=== PATIENT | male | born 1960 | race Caucasian/White ===

== ENCOUNTER → 2019-04-26 | Outpatient (CLI) | payer OTHER ==
[~2019-04-26] MED LIST: ACET500T68 PO; ASCO500C9 PO; CHOL10003 PO; DOCU-109 PO; GLUC-9 PO; IBUP-1060 PO; LEVO150T5 PO; NORT25CA PO; ROSUVASTATIN CA10 M1 PO; TRAM50TA PO; VALIUM10 MG PO; ZALE10CA PO
[2019-04-26 10:31] LABS: BASO # 0.1 x10^3/uL (0.0-0.2); BASO % 1 % (0-3); EOS % 1 % (0-3); HEMATOCRIT 42.7 % (39.0-53.0); HEMOGLOBIN 14.9 g/dL (13.0-17.5); LYMPH # 1.2 x10^3/uL (1.0-4.8); LYMPH % 18 % (24-48); MEAN CORPUSCULAR HEMOGLOBIN 33 pg (25-35); MEAN CORPUSCULAR HGB CONC 35 g/dL (31-37); MEAN CORPUSCULAR VOLUME 95 fL (79-100); MONO # 0.6 x10^3/uL (0.0-1.1); MONO % 10 % (0-9); NEUT # 4.6 x10^3uL (1.8-7.7); NEUT % 71 % (31-73); PLATELET COUNT 265 x10^3/uL (140-400); RED BLOOD COUNT 4.49 x10^6/uL (4.30-5.70); WHITE BLOOD COUNT 6.5 x10^3/uL (4.0-11.0)
[2019-04-26 10:57] LABS: ALBUMIN 3.6 g/dL (3.4-5.0); ALBUMIN/GLOBULIN RATIO 1.2 (1.0-1.7); CALCIUM 8.6 mg/dL (8.5-10.1); CREATININE 0.9 mg/dL (0.7-1.3); POTASSIUM 4.2 mmol/L (3.5-5.1); TOTAL BILIRUBIN 0.3 mg/dL (0.2-1.0); TOTAL PROTEIN 6.6 g/dL (6.4-8.2)
== END | disposition home or self-care (01) ==
LOC: SURGPAT 09:42
PROVIDERS: ATTEND Neurological Surgery
DX: Z01.818 Encounter for other preprocedural examination (principal); M50.10 Cervical disc disorder with radiculopathy, unspecified cervical region; M48.02 Spinal stenosis, cervical region
CPT/HCPCS: 36415; 80053; 85025; 87641

== ENCOUNTER 2019-05-03 07:40 | Observation (INO) | payer OTHER ==
[2019-05-03] VITALS (9 sets, daily range): BP systolic 90–128; BP diastolic 60–84
[~2019-05-03] VITALS: Ht 167.6 cm; Wt 85.3 kg
[~2019-05-03 07:40] MED LIST changes: +BUPIVAC MPF-EPI 0.5%-1:200000 30 ML VIAL. ONE; -DOCU-109 PO; +GELATIN SPONGE SIZE 12-7MM SPONGE. ONE; +THROMBIN TOPICAL 20,000 UNIT SPRAY.SYRN KIT TP ONE; -TRAM50TA PO; +ceFAZolin 2GM PREMIX 2 GM/50 ML BAG IV ONE
[2019-05-03] MEDS: IV RINGERS,LACTATED 1000ML 1,000 ML IV SCH ×3 (08:23→22:47)
[2019-05-03] MEDS ORDERED: ePHEDrine PF IN SALINE 50 MG/10 ML SYRINGE. IV ONE ×2 (08:32→10:11)
[2019-05-03] MEDS ORDERED: DEXAMETHASONE SOD PHOS 20 MG/5 ML VIAL. ONE (08:32)
[2019-05-03] MEDS ORDERED: PROPOFOL 20 ML IV ONE (08:32)
[2019-05-03] MEDS ORDERED: ONDANSETRON PF 4 MG/2 ML VIAL. ONE (08:32)
[2019-05-03] MEDS ORDERED: LIDOCAINE 2% PF 5 ML VIAL. ONE (08:32)
[2019-05-03] MEDS ORDERED: PHENYLEPHRINE in 0.9% NACL PF 1 MG/10 ML SYRINGE. IV ONE (08:33)
[2019-05-03] MEDS ORDERED: SUCCINYLCHOLINE 200 MG/10 ML VIAL. ONE (08:34)
[2019-05-03] MEDS ORDERED: ROCURONIUM 50 MG/5 ML VIAL. ONE (08:34)
[2019-05-03] MEDS ORDERED: PROPOFOL 50 ML IV ONE ×2 (08:35→10:40)
[2019-05-03] MEDS ORDERED: fentaNYL PF VIAL 100 MCG/2 ML VIAL ONE ×2 (08:35→13:27)
[2019-05-03] MEDS ORDERED: REMIFENTANIL 2 MG VIAL. IV ONE (08:36)
[2019-05-03] MEDS ORDERED: VANCOMYCIN 1GM IVPB FOR OMNI 250 ML IV STA (08:38)
[2019-05-03] MEDS ORDERED: MIDAZOLAM HCL/PF 2 MG/2 ML VIAL. ONE (08:52)
[2019-05-03] MEDS ORDERED: BACITRACIN 50,000 UNIT in IV NORMAL SALINE 1000ML BAG 1,000 ML IRR ONE (09:00)
--- NOTE | 2019-05-03 09:01 | PREOP HP ---
DATE OF SERVICE: 05/03/2019. HISTORY OF PRESENT ILLNESS: The patient is a pleasant 59-year-old, who has neck pain and right greater than left arm pain. He notes his neck pain can radiate into both of his arms and his upper back. He has headaches associated with this. This problem started about a month ago. The last month has been much more severe. He currently rates his pain as a constant 8/10. Looking up or down or sitting for too long increases his pain. Turning his head is painful for him. He uses ice, heat, and stretches. He does physical therapy exercises at home. He spoke with a pain clinic for epidural steroid injections. After reviewing his films, the pain clinic physician refused to give him an epidural saying he needs to be seen by a surgeon. He did have cervical surgery 5 years ago and did well from that. PAST MEDICAL HISTORY: Cancer of the thyroid, headaches and migraines, thyroid disease. PAST SURGICAL HISTORY: Lumbar surgery in 2000, hand surgery in 2003, thyroid cancer in 2012, cervical surgery in 2014. FAMILY HISTORY: Cancer. SOCIAL HISTORY: Retired. . Stretches and walks for exercises. Denies tobacco use. Drinks alcohol 1-2 times daily. Drinks coffee daily. ALLERGIES: To CODEINE. CURRENT MEDICATIONS: Sonata, Synthroid,Skelaxin, nortriptyline, acetaminophen and ibuprofen. REVIEW OF SYSTEMS: A 12-point review of systems was obtained and is noncontributory except for that mentioned above. PHYSICAL EXAMINATION: NEUROSURGERY EXAMINATION: GENERAL APPEARANCE: Alert, pleasant, no acute distress. HEAD: Normocephalic and atraumatic. NECK AND THYROID: Mild to moderate tenderness with palpation of posterior cervical region. Well-healed incision. SKIN: Warm and dry. MUSCULOSKELETAL: Cervical paraspinal muscle bulk is normal, cervical range of motion is restricted, normal range of motion of the upper extremities bilaterally. EXTREMITIES: No clubbing, cyanosis, or edema. NEUROLOGIC: Alert and oriented x 3, normal recent and remote memory. Strength is 5/5 in bilateral upper and lower extremities, sensory was intact to light touch in upper and lower extremities except for decrease involving both of his hands. Reflexes were present and symmetric in the upper and lower extremities bilaterally, ambulates with a cane. IMAGING: I reviewed a cervical MRI scan from 03/23/2019. On that study, there was evidence of a previous ACDF extending from C5 through C7. At C4-C5, there was a moderately large disc protrusion posteriorly with a left paracentral disc protrusion. This resulted in a severe neural foraminal narrowing. There was also moderately severe cervical spinal stenosis, which has become significantly worse since his last study. ASSESSMENTS/PLAN: He has cervical spinal stenosis, which is significant. He has failed to improve with conservative measures. I recommended further cervical surgery at C4-C5. I explained that I would have to remove at least part of the anterior cervical plate, position below and perform a generous discectomy at C4-C5 and place a new plate at that level. I discussed with him the risk of the anterior neck surgery including stroke, paralysis, and injury to the esophagus and trachea. I outlined the technique of the operation and expected postoperative course. We went through the rationale for the surgery and the options. He would like to go ahead. We will make the arrangements. MEIR CLOUD MD DR: DONALD/latisha JOB#: [id number] / [id number] DEVIKA
[2019-05-03] MEDS ORDERED: PHENYLEPHRINE 10 MG/ML VIAL. ONE (10:44)
[2019-05-03] MEDS ORDERED: DESFLURANE > 120 MINUTES IH ONE (12:06)
[2019-05-03] MEDS ORDERED: GLYCOPYRROLATE 1 MG/5 ML VIAL. ONE (12:20)
[2019-05-03] MEDS ORDERED: diphenhydrAMINE HCL 25 MG CAPSULE PO PRN (12:30)
[2019-05-03] MEDS ORDERED: ACETAMINOPHEN 325 MG TABLET. PO PRN (12:30)
[2019-05-03] MEDS ORDERED: MAG HYDROX/ALUMINUM HYD/SIMETH 30 ML ORAL.SUSP PO PRN (12:30)
[2019-05-03] MEDS ORDERED: diazePAM 5 MG TABLET PO PRN (12:30)
[2019-05-03] MEDS ORDERED: CALCIUM CARBONATE 500 MG TAB.CHEW PO PRN (12:30)
[2019-05-03] MEDS ORDERED: diphenhydrAMINE 50 MG/ML VIAL IV PRN (12:30)
[2019-05-03] MEDS ORDERED: ONDANSETRON PF 4 MG/2 ML VIAL. IV PRN ×2 (12:30→13:30)
[2019-05-03] MEDS ORDERED: 0.9 % SODIUM CHLORIDE 10 ML DISP.SYRIN. IV PRN (12:30)
[2019-05-03] MEDS ORDERED: ACETAMINOPHEN 500 MG TABLET PO PRN (12:30)
[2019-05-03] MEDS ORDERED: MAGNESIUM HYDROXIDE 2,400 MG/30 ML ORAL.SUSP. PO PRN (12:30)
[2019-05-03] MEDS ORDERED: PROCHLORPERAZINE 10 MG/2 ML VIAL. ONE (12:44)
[2019-05-03] MEDS ORDERED: ZOLPIDEM 5 MG TABLET. PO PRN (12:45)
--- NOTE | 2019-05-03 12:56 | OP ---
DATE OF SURGERY: 05/03/2019 PREOPERATIVE DIAGNOSES: Herniated cervical disc, C4-C5 with cervical stenosis and cervical radiculopathy. POSTOPERATIVE DIAGNOSES: Herniated cervical disc, C4-C5 with cervical stenosis and cervical radiculopathy. OPERATION PERFORMED: Anterior cervical microdiscectomy C4-C5; anterior cervical interbody fusion C4-C5 with allograft and autograft bone and interbody fusion cage, anterior cervical plate, C4-C5. The operation included removal of hardware C5, fluoroscopy, microscopic dissection, multimodality monitoring including EMG, SSEP, motor evoked potentials, NIMS monitoring. SURGEON: Eder Cloud M.D. ONLINE MERCHANDISING MANAGER: EVAN Arteaga assisted with the surgery. She assisted with the placement of hardware and closure. OPERATIVE INDICATIONS: The patient is a pleasant 59-year-old man who developed intractable neck and bilateral arm pain, right greater than left. On imaging studies, there was a disc herniation at C4-C5 with neural foraminal narrowing and moderately severe cervical stenosis and I have recommended an anterior cervical microdiscectomy and fusion. I spoke with him about the surgery, the risks, technique and expected postoperative course and he wished to go ahead. In the past, he has undergone a surgery with anterior fusion from C5 through C7. DESCRIPTION OF PROCEDURE: Following general endotracheal anesthesia, the patient was positioned supine with the neck and head in the neutral position. The anterior cervical region was prepped and draped in standard fashion. ANN-MARIE hose and AV impulse boots were applied for DVT prophylaxis. The microscope was draped. Fluoroscopy was draped and brought in the field. Vancomycin 1 gram and Ancef 2 grams was given prior to surgery at the appropriate times. Using fluoroscopic guidance, an incision was made from the midline around to the right side in a skin crease in the anterior cervical region directly over the C4-C5 interspace. I dissected down skin and subcutaneous tissue. I dissected down the medial aspect of sternocleidomastoid and carotid artery sheath down the anterior cervical vertebral body. I reflected the trachea and esophagus contralaterally and I worked down through scarring and exposed the previous plate. I did remove one of the screws, which allowed me then to place a distraction pin in the place, a distraction pin into C4, confirmed my positions fluoroscopically. I distracted the disc space after I placed the anterior cervical retractors and had excellent hemostasis. The microscope was brought in during this time. I incised the anterior annulus with #11 blade. I performed discectomy with pituitary rongeurs. I scraped away the cartilaginous endplate and gradually worked down posteriorly, there was considerable spurring posteriorly and I trimmed this away and then there was posterior disc, which I peeled back and removed and I then worked laterally bilaterally and assured myself that the neural foramina were open. I could visualize the dura. I was able to pass a blunt hook out into the foramen without any resistance and I felt that I had an excellent decompression. I did scrape cartilaginous endplate. Then I measured and placed a 6 mm interbody fusion cage, which was packed with allograft and autograft bone. The autograft bone, I obtained from shaving away the bone spurs and keeping this bone. Hemostasis prior to placement of the cage was perfect. I placed an anterior 12 mm plate and four 14 mm screws, which were locked. One screw I redirected slightly superiorly and the images were obtained and I felt that the positioning was absolutely perfect. I irrigated copiously with antibiotic solution. I removed the retractor, again Valsalva'd and assured myself of perfect hemostasis, which there was. I closed the wound with absorbable sutures, a single layer for the platysma and then closed the skin with a 4-0 subcuticular stitch. The operation went very well. I was quite pleased with the surgery. EDER CLOUD MD DR: DONALD/latisha JOB#: [id number] / [id number] DEVIKA
[2019-05-03] MEDS ORDERED: IV RINGERS,LACTATED 1000ML 1,000 ML IV SCH (13:17)
[2019-05-03] MEDS: fentaNYL PF VIAL 100 MCG/2 ML VIAL IV PRN ×4 (13:29→21:13)
[2019-05-03] MEDS ORDERED: MORPHINE SULFATE 2 MG/ML VIAL. IV PRN (13:30)
[2019-05-03] MEDS ORDERED: fentaNYL PF VIAL 100 MCG/2 ML VIAL IV PRN ×2 (13:30)
[2019-05-03] MEDS ORDERED: HYDROmorphone 2 MG/ML VIAL IV PRN (13:30)
[2019-05-03] MEDS ORDERED: PROCHLORPERAZINE 10 MG/2 ML VIAL. IV PRN (13:30)
[2019-05-03] MEDS ORDERED: ceFAZolin SODIUM 1 GM in IV DEXTROSE 5% 50 ML IV SCH (14:00)
[2019-05-03] MEDS: ceFAZolin SODIUM IV Push 1 GM VIAL. IVP SCH ×2 (14:31→21:56)
--- NOTE | 2019-05-03 14:58 | NUR ---
Received from PACU per bed, alert/oriented, states discomfort level 8/10, bilateral equal opportunity representative equal, denies numbness or tingling, dressing to anterior neck clean, dry & intact, soft cervical collar in place, ice pack to anterior neck, bilateral ANN-MARIE hose & SCD for DVT prevention, oriented to surroundings, call light within reach, family member at bedside
[2019-05-03] MEDS: POTASSIUM CL 20MEQ D5-0.45NACL 1,000 ML IV SCH ×2 (15:00→21:06)
--- NOTE | 2019-05-03 15:06 | NUR ---
90% on room air, placed on 1l/nc
[2019-05-03] MEDS ORDERED: ZOLPIDEM 5 MG TABLET. PO SCH (21:00)
[2019-05-03] MEDS ORDERED: ATORVASTATIN CALCIUM 40 MG TABLET. PO SCH (21:00)
[2019-05-03] MEDS ORDERED: POLYETHYLENE GLYCOL 3350 17 GM PACKET. PO SCH (21:00)
[2019-05-03] MEDS ORDERED: NORTRIPTYLINE 25 MG CAPSULE PO SCH (21:00)
[2019-05-03] MEDS: DOCUSATE SODIUM 100 MG CAPSULE. PO SCH (21:06)
[2019-05-03] MEDS ORDERED: traMADol 50 MG TABLET PO PRN ×2 (22:00)
[2019-05-04 03:00] VITALS: BP 119/78
--- NOTE | 2019-05-04 03:20 | NUR ---
Assisted to toilet. Tramadol given po, c/o pain 05/26. Ice pack placed.
[2019-05-04] MEDS: POTASSIUM CL 20MEQ D5-0.45NACL 1,000 ML IV SCH (03:32)
[2019-05-04] MEDS: traMADol 50 MG TABLET PO PRN ×2 (03:36→07:52)
[2019-05-04] MEDS: ceFAZolin SODIUM IV Push 1 GM VIAL. IVP SCH (05:45)
[2019-05-04] MEDS ORDERED: LEVOTHYROXINE 150 MCG TABLET PO SCH (06:00)
[2019-05-04 06:33] VITALS: BP 114/77
--- NOTE | 2019-05-04 06:50 | NUR ---
Reports chronic lower neck pain, usually rates 6-7/10. Voiding frequently. "Slow to start sometimes." VSS.
[2019-05-04] MEDS: DOCUSATE SODIUM 100 MG CAPSULE. PO SCH (07:48)
[2019-05-04] MEDS ORDERED: [UNRECOGNIZED DRUG - OTHER] PO SCH (09:00)
[2019-05-04] MEDS ORDERED: CHOLECALCIFEROL (VITAMIN D3) 1,000 UNIT TABLET PO SCH (09:00)
[2019-05-04] MEDS ORDERED: ASCORBIC ACID 500 MG TABLET PO SCH (09:00)
[2019-05-04 11:02] VITALS: BP 138/90
[2019-05-04] MEDS ORDERED: DOCU-109 PO (11:39)
[2019-05-04] MEDS ORDERED: TRAM50TA PO (11:39)
--- NOTE | 2019-05-04 11:41 | DISCH ---
DISCHARGE INSTRUCTIONS Condition on Discharge Condition on Discharge: Stable Activity After Discharge Activity Instructions for Disc: Activity as tolerated, Avoid exertion Other activity instructions: no driving for a week Bathing Instructions: Shower-keep dressing dry Lifting Instructions after Dis: No heavy lifting, No pulling or pushing, Do not lift >10 pounds Diet after Discharge Additional Diet Restrictions: resume home diet Wound Incision Care Wound/Incision Care: Ice to area for comfort Other wound/incision instructi: may remove dressing tomorrow if dry Contacting the DRSharon after DC Call your doctor for: Concerns you may have Follow-Up Follow up with: Dr. Cloud's nurse in 2 weeks [phone] MEIR CLOUD MD May 04, 2019 11:40
--- NOTE | 2019-05-04 12:25 | NUR ---
Discharge instructions given to both pt & spouse with follow up to MD in 2 weeks, supplies given for home use-ice packs & dressing supplies, see instruction sheet for details
--- NOTE | 2019-05-04 13:46 | DS ---
DATE OF DISCHARGE: 05/04/2019 DATE OF SURGERY AND ADMISSION: 05/03/2019. ' DISCHARGE DIAGNOSES: Herniated cervical disk, C4-C5, with cervical stenosis and cervical radiculopathy. OPERATION PERFORMED: Anterior cervical microdiskectomy and fusion C4-C5. HISTORY OF PRESENT ILLNESS: The patient is a pleasant 59-year-old man who developed intractable neck and bilateral arm pain, right greater than left. On imaging studies, there was a disk herniation at C4-C5 with neural foraminal narrowing and moderately severe cervical stenosis, and I recommended an anterior cervical microdiskectomy and fusion. We spoke about the surgery, the risk and the technique as well as the expected postoperative course, and he wished to go ahead. HOSPITAL COURSE: He was admitted to the floor postoperatively where he has done well. He is up ambulating in the room and in the halls. Physical therapy was initiated, and instruction was given to him regarding his activities. He notes resolution of his bilateral arm pain. He is in good condition to discharge home. DISCHARGE MEDICATIONS: He will resume his medications per the MRAD. DISCHARGE INSTRUCTIONS: He was instructed regarding incision care, activity restrictions and expectations for the next several weeks. He will follow up in our office in 2 weeks. He understands to call with any questions or concerns. MEIR CLOUD MD DR: ELYSE/latisha JOB#: [id number] / [id number]
--- NOTE | 2019-05-05 17:06 | PATHOLOGY ---
[facility] Accession Number: [id number] . 01 Material submitted: . vertebral column - CERVICAL DISC . 01 Clinical history: . Cervical herniated disc and radiculopathy, stenosis . 02 Diagnosis: Segments of fibrocartilaginous tissue, cervical disc: - Degenerative changes of fibrocartilaginous tissue. (JPM:folder inspector; 05/05/2019) MBR/05/05/2019 . 02 Comment: There is no evidence of an acute inflammatory process or malignancy. (JPM:folder inspector; 05/05/2019) . 02 Electronically signed: . Valentino Osman MD, Pathologist NPI- [id number] . 01 Gross description: . Received in formalin labeled "Valentino Brock, cervical disc," are several pieces of glistening, fibrous tissue measuring 2.5 x 2.0 x 1.7 cm in aggregate dimensions, containing small fragments of possible bone. The tissue is submitted representatively in cassette A1, following decalcification. (TSD; 05/03/2019) TOB/TOB . 02 Pathologist provided ICD-10: M50.20, M54.12, M99.71 . 02 CPT . 053030, 821953 Specimen Comment: A courtesy copy of this report has been sent to Specimen Comment: [phone], . Specimen Comment: Report sent to / DR GREEN Performed at: 01 [facility] [address], [place] [id number] MD Shoaib Padilla MD Phone: [phone] Performed at: 02 [facility] [address] [place], [place] [id number] MD Valentino Osman MD Phone: [phone]
== END 2019-05-04 12:29 | disposition home or self-care (01) ==
LOC: SURG 07:40 → EDUNIT# 09:30 → 4 SOUTHEST 13:00
PROVIDERS: ADMIT Neurological Surgery; ATTEND Neurological Surgery
DX: M50.121 Cervical disc disorder at C4-C5 level with radiculopathy (principal); M48.02 Spinal stenosis, cervical region; Z85.850 Personal history of malignant neoplasm of thyroid; R51 Headache; Z98.890 Other specified postprocedural states
CPT/HCPCS: 20930; 20937; 22554; 22845; 76000; 88304; 88311; 96374; 96375; 96376; 97110; 97116; 97162; A7015; C1713; G0378; G0379; J0171; J0330; J0690; J0696; J0780; J1100; J2001; J2250; J2370; J2405; J2704; J3010; J3370; J3490; J7030